=== PATIENT | female | born 1965 | race Caucasian/White ===

== ENCOUNTER 2017-12-26 17:20 | Emergency (ER) | payer MEDICAID ==
[~2017-12-26] VITALS: Ht 165.1 cm; Wt 104.9 kg
[~2017-12-26 17:20] MED LIST: FLUO40CA9; LEVO50CA2
[2017-12-26 17:27] VITALS: BP 163/75
[2017-12-26] MEDS ORDERED: HYDROcodone/APAP 5/325 TABLET ONE (18:30)
[2017-12-26] MEDS ORDERED: HYDROcodone/APAP 5/325 TABLET PO ONE (18:30)
== END 2017-12-26 19:13 | disposition home or self-care (01) ==
LOC: ED 18:45
DX: K08.89 Other specified disorders of teeth and supporting structures (principal); R51 Headache
CPT/HCPCS: 99283